=== PATIENT | female | born 1980 | race Caucasian/White ===

== ENCOUNTER 2017-04-04 11:39 | Emergency (ER) | payer OTHER ==
--- NOTE | 2017-04-04 11:48 | EDPHY ---
H & P Source: Patient Exam Limitations: No limitations - Personal History LMP (Females 10-55): 8-14 Days Ago Time Seen by Provider: 04/04/17 11:48 HPI/ROS: HPI: This is a 36-year-old female who presents with Chief Complaint: Panic attack Location: Anterior Chest Quality: Pain Duration: Starting 30 min prior to arrival Signs and Symptoms: + shortness of breath at rest, + shortness of breath on exertion, no cough, + chest pain, no palpitations, no lower extremity edema, no wheezing, no orthopnea, no paroxysmal nocturnal dyspnea, no fever, no injury/ trauma, no hemoptysis Timing: Acute, resolving Severity: Moderate Context: Patient has a history of depression anxiety but has been off her Celexa for "quite some time" presents via EMS from work where she works in [employer]. They were having a photo shoot today when all a sudden she started to become anxious, started to breathe rapidly and then feel anterior, nonradiating, chest pain accompanied by the feeling of inability to take a deep breath. She reports that she has noted that her anxiety has been increasing over the last several weeks. She denies any recent long distance travel/fever/ cough/body aches/lower extremity edema/palpitations. is at bedside. LMP 2 weeks ago. Nonsmoker. Does not take oral contraception. Denies any familial history of cardiac disease. Denies any nausea/vomiting/indigestion/ food intolerances. Modifying Factors: EMS gave patient 4 baby aspirins to chew and Zofran Comment: ROS: see HPI Constitutional: No fever, no chills, no weight loss Eyes: No blurred vision Respiratory: + shortness of breath, no cough Cardiovascular: + chest pain, no palpitations, no lower extremity edema Gastrointestinal: No nausea, no vomiting, no diarrhea Genitourinary: No dysuria Extremities: No myalgias Neurologic: No weakness, no numbness Skin: No rashes Hematologic: No bruising, no bleeding MEDICAL/SURGICAL/SOCIAL HISTORY: Medical history: Anxiety, depression. Surgical history: Denies Social history: Employed. . CONSTITUTIONAL: Extremely anxious, nontoxic appearing, adult white female awake and alert, no obvious distress HEENT: Atraumatic and normocephalic, PERRL, EOMI. Tympanic membranes clear. Oropharynx clear, no exudate and moist pink mucosa. Airway patent. No lymphadenopathy. No meningismus. Cardiovascular: Normal S1/S2, tachycardia, regular rhythm, without murmur rub or gallop. PULMONARY/CHEST: Symmetrical and nontender. Clear to auscultation bilaterally. Good air movement. No accessory muscle usage. Tachypnea. ABDOMEN: Soft, nondistended, nontender, no rebound, no guarding, no peritoneal signs, no masses or organomegaly. No CVAT. EXTREMITIES: 2/2 pulses, strength 5/5, no deformities, no clubbing, no cyanosis or edema. NEUROLOGICAL: no focal neuro deficits. GCS 15. SKIN: Warm and dry, no erythema. no rash. Good capillary refill. (Heydi Lyons) Constitutional: Initial Vital Signs Temperature (C) 36.6 C 04/04/17 12:14 Heart Rate 95 04/04/17 12:14 Respiratory Rate 24 H 04/04/17 12:14 Blood Pressure 155/85 H 04/04/17 12:14 O2 Sat (%) 100 04/04/17 12:14 O2 Delivery Mode Room Air Allergies/Adverse Reactions: No Known Allergies Allergy (Unverified 04/04/17 12:10) Home Medications: Medication Instructions Recorded LORazepam [Ativan] 0.5 mg PO Q8 PRN #10 tablet 04/04/17 Medical Decision Making - Diagnostics Imaging Results: Imaging Impressions Abdomen Ultrasound 04/04/17 13:07 Impression: Cholelithiasis with borderline-enlargement of the common bile duct, but no evidence of choledocholithiasis. Findings were discussed with Heydi Lyons PA-C at 14:11, on 04/04/2017. ED Course/Re-evaluation: Chest x-ray, EKG, labs, IV medications ordered Given IV Ativan 1 mg upon arrival No hypoxia with normal lung exam. ISIDORO risk is low. abdominal exam benign. Abdomen soft and nontender. Low yield for surgical abdomen. 1220: Notified by nursing that patient declines EKG and chest x-ray. Reassessed patient who reports that she has complete relief of all of her symptoms. She reports that she has had increasing anxiety over the last 6 months. She believes that this is a panic attack. She follows with [facility] and will make an appointment soon to be restarted on her Celexa. She agrees to laboratory studies. Labs reviewed: No signs of anemia/VTE/acute kidney injury/electrolyte imbalance. + LFTs show mild elevation; offered right upper quadrant ultrasound to evaluate for gallbladder disease; patient agrees to this in the emergency room She has already called her PCP who has called into pharmacy Lexapro 10 mg daily and she has a follow-up appointment in 2 weeks. Called by Radiology who advised that ultrasound shows cholelithiasis; no signs of cholecystitis; negative Yost sign; borderline-enlargement of the common bile duct, but no evidence of choledocholithiasis. Patient reports now that she thinks about that she has indigestion with fatty and fried foods. Her mom and her sister have had to have her gallbladder out in the past. Patient tolerating p.o. in the ER without difficulty. Prefers to follow up outpatient and schedule laparoscopic cholecystectomy. This patient was seen under the supervision of my secondary supervising physician. I evaluated care for this patient independently. Discussed this patient with Dr. Turner who did not see the patient. (Heydi Lyons) Differential Diagnosis: Chest pain including but not limited to myocardial ischemia, pulmonary embolus, chest wall pain, pleural inflammation, anxiety and pulmonary infectious causes. (Heydi Lyons) Other Provider: PHYSICIAN DOCUMENTATION: The patient was evaluated and managed by the [facility]ician [facility] Rep. My co- signature indicates that I have reviewed this chart and I agree with the findings and plan of care as documented. I am the secondary supervising physician. (Laith Turner) - Data Points Laboratory Results: Laboratory Results 04/04/17 11:58 04/04/17 11:58 04/04/17 04/04/17 04/04/17 11:58 11:58 11:58 WBC RBC Hgb Hct MCV MCH MCHC RDW Plt Count MPV Neut % (Auto) Lymph % (Auto) Montgomery % (Auto) Eos % (Auto) Baso % (Auto) Nucleat RBC Rel Count Absolute Neuts (auto) Absolute Lymphs (auto) Absolute Monos (auto) Absolute Eos (auto) Absolute Basos (auto) Absolute Nucleated RBC Immature Gran % Immature Gran # D-Dimer 0.47 ug/mLFEU ug/mLFEU (0.00-0.50) Sodium 141 mEq/L mEq/L (135-145) Potassium 3.6 mEq/L mEq/L (3.5-5.2) Chloride 104 mEq/L mEq/L (97-110) Carbon Dioxide 19 mEq/l L mEq/l (22-31) Anion Gap 18 mEq/L H mEq/L (8-16) BUN 11 mg/dL mg/dL (7-23) Creatinine 0.7 mg/dL mg/dL (0.6-1.0) Estimated GFR > 60 Glucose 110 mg/dL H mg/dL (70-100) Calcium 9.7 mg/dL mg/dL (8.5-10.4) Total Bilirubin 1.1 mg/dL mg/dL (0.1-1.4) AST 115 IU/L H IU/L (14-46) ALT 72 IU/L H IU/L (9-52) Alkaline Phosphatase 76 IU/L IU/L (38-126) Troponin I < 0.012 ng/mL ng/mL (0.000-0.034) Total Protein 7.3 g/dL g/dL (6.3-8.2) Albumin 4.6 g/dL g/dL (3.5-5.0) Lipase 266 IU/L IU/L (23-300) 04/04/17 11:58 WBC 7.34 10^3/uL 10^3/uL (3.80-9.50) RBC 4.56 10^6/uL 10^6/uL (4.18-5.33) Hgb 15.2 g/dL g/dL (12.6-16.3) Hct 43.9 % % (38.0-47.0) MCV 96.3 fL fL (81.5-99.8) MCH 33.3 pg pg (27.9-34.1) MCHC 34.6 g/dL g/dL (32.4-36.7) RDW 12.6 % % (11.5-15.2) Plt Count 286 10^3/uL 10^3/uL (150-400) MPV 9.9 fL fL (8.7-11.7) Neut % (Auto) 58.5 % % (39.3-74.2) Lymph % (Auto) 34.1 % % (15.0-45.0) Montgomery % (Auto) 6.1 % % (4.5-13.0) Eos % (Auto) 0.5 % L % (0.6-7.6) Baso % (Auto) 0.4 % % (0.3-1.7) Nucleat RBC Rel Count 0.0 % % (0.0-0.2) Absolute Neuts (auto) 4.29 10^3/uL 10^3/uL (1.70-6.50) Absolute Lymphs (auto) 2.50 10^3/uL 10^3/uL (1.00-3.00) Absolute Monos (auto) 0.45 10^3/uL 10^3/uL (0.30-0.80) Absolute Eos (auto) 0.04 10^3/uL 10^3/uL (0.03-0.40) Absolute Basos (auto) 0.03 10^3/uL 10^3/uL (0.02-0.10) Absolute Nucleated RBC 0.00 10^3/uL 10^3/uL (0-0.01) Immature Gran % 0.4 % % (0.0-1.1) Immature Gran # 0.03 10^3/uL 10^3/uL (0.00-0.10) D-Dimer Sodium Potassium Chloride Carbon Dioxide Anion Gap BUN Creatinine Estimated GFR Glucose Calcium Total Bilirubin AST ALT Alkaline Phosphatase Troponin I Total Protein Albumin Lipase Medications Given: Discontinued Medications Lorazepam (Ativan Injection) 1 mg IVP EDNOW ONE Stop: 04/04/17 11:58 Last Admin: 04/04/17 12:10 Dose: 1 mg Departure - Departure Disposition: Home, Routine, Self-Care Clinical Impression: Anxiety disorder Qualifiers: Anxiety disorder type: generalized anxiety disorder Qualified Code(s): F41.1 - Generalized anxiety disorder Cholelithiasis Qualifiers: Cholelithiasis location: gallbladder Cholecystitis presence: without cholecystitis Biliary obstruction: without biliary obstruction Qualified Code(s) : K80.20 - Calculus of gallbladder without cholecystitis without obstruction Condition: Good Instructions: Biliary Colic (ED), Gallstones (ED), Low Fat Diet (ED), Laparoscopic Cholecystectomy (DC), Anxiety (ED), Panic Attack (ED) Additional Instructions: Follow a low-fat diet. Eat small frequent meals. Follow-up with General surgery in 1-2 weeks to discuss if candidate for outpatient laparoscopic cholecystectomy. Start taking Lexapro and establish care with primary care. Referrals: PCP Not In,Dictionary [Medical Doctor] - As per Instructions Tahir Lang MD [Medical Doctor] - As per Instructions Prescriptions: LORazepam [Ativan] 0.5 mg PO Q8 PRN #10 tablet PRN Reason: Anxiety
[2017-04-04] MEDS ORDERED: LORazepam 2 MG/ML INJ IVP ONE (11:57)
[2017-04-04 12:12] LABS: PLATELET COUNT 286 10^3/uL (150-400)
[2017-04-04 13:19] VITALS: RESP 16
[2017-04-04 14:39] VITALS: BP 112/63; PULSE 71; TEMP 97.7; O2SAT 98
== END 2017-04-04 14:39 | disposition home or self-care (01) ==
LOC: EDUNIT#
DX: F41.1 Generalized anxiety disorder (principal); K80.20 Calculus of gallbladder without cholecystitis without obstruction
CPT/HCPCS: 96374; J2060

== ENCOUNTER 2017-04-04 21:54 | Observation (INO) | payer OTHER ==
[2017-04-04] MEDS ORDERED: NS 1,000 ML IV ONE (22:23)
[2017-04-04] MEDS ORDERED: PROMETHAZINE HCL 25 MG/ML INJ IVP ONE (22:23)
--- NOTE | 2017-04-04 22:29 | EDPHY ---
General - History Smoking Status: Never smoked Narrative: CHIEF COMPLAINT: Chest pain, abdominal pain HISTORY OF PRESENT ILLNESS: Patient presents with complaints of epigastric abdominal pain and lower chest pain. She reports feeling well when she left the emergency department around 2: 00 p.m.. She went to stay in a hotel to get increased rest tonight. Prior to doing so she ate a meal around 4:30 p.m.. Shortly after arriving to the hotel she reports return of epigastric pain. It was severe and radiated into the lower retrosternal region and into her back. Source palpation of the epigastrium. Associated with nausea but no vomiting. The pain was not worsened with exertion. No urinary complaints. No flank pain. She was here earlier today with reports of a possible panic attack with a diagnosis of cholelithiasis without cholecystitis. No other associated complaints or modifying factors. REVIEW OF SYSTEMS: Ten systems reviewed and are negative unless otherwise noted in the HPI PCP: Dr. Saxena SPECIALISTS: None PAST MEDICAL HISTORY: Depression/anxiety PAST SURGICAL HISTORY: No surgical history SOCIAL HISTORY: Nonsmoker. Occasional alcohol. No drug use. Works in marketing FAMILY HISTORY: Noncontributory EXAMINATION General Appearance: Alert, no distress Head: normocephalic, atraumatic Eyes: Pupils equal and round, no conjunctival pallor or injection ENT, Mouth: Mucous membranes moist Neck: Normal inspection, supple, non-tender Respiratory: Lungs are clear to auscultation. No wheezing, rhonchi or crackles Cardiovascular: Regular rate and rhythm. No murmur Gastrointestinal: Abdomen is soft and nondistended. Moderate tenderness in the epigastrium. No tympany. No rigidity. No guarding. Negative McBurney. Back: non-tender, no bony abnormalities Neurological: A&O, nonfocal, normal gait Skin: Warm and dry, no rash. No petechiae or purpura Extremities: Nontender, no pedal edema Psychiatric: Mood and affect normal DIFFERENTIAL DIAGNOSES: Including but not limited to symptomatic cholelithiasis, choledocholithiasis, cholecystitis, pancreatitis, gastritis, ACS MDM: 10:25 p.m. Epigastric and lower retrosternal chest pain. Abdominal exam suggest gallbladder or pancreatic etiology. Her pain is reproducible by palpation of the epigastrium. Is also worse with inspiration. Her vital signs were well within normal limits. She was seen earlier today with similar complaints with asymptomatic cholelithiasis without cholecystitis. Her pain did return after eating a large meal this evening. She is nontoxic and in no acute distress. I have ordered IV placement. I have ordered laboratory studies, IV fluid, pain medication and antiemetic. I have also ordered EKG and chest x-ray. I do not feel she warrants an emergent CT scan at this time. I reviewed the findings from her laboratory studies and ultrasound of the abdomen earlier today. 11:20 p.m. Patient re-evaluated. Chemistry does reveal elevated total bilirubin and further increases of the transaminases. She will need surgical consultation. She is feeling significantly better however and resting comfortably at this time. 11:40 p.m. I discussed the case with the on-call surgeon Dr. Lang. We reviewed the patient's history of present illness, exam and laboratory studies. He recommends admission to the medicine service with GI consultation in the morning for ERCP and surgical intervention as indicated. I discussed this with the patient she agrees to this plan. Hospitalist has been paged. 11:55 p.m. Case discussed with hospitalist Dr. Hernandez. She will admit the patient to her service. Patient is admitted in stable condition. She is resting comfortably at this time. SUPERVISION: Patient was independently examined, but I discussed the case with my secondary supervising physician Dr. Chaudhry ([facility]) PHYSICIAN DOCUMENTATION: The patient was evaluated and managed by the Physician Veneer Grader. My co- signature indicates that I have reviewed this chart and I agree with the findings and plan of care as documented. I am the secondary supervising physician. (Sonia Chaudhry) - Objective Vital Signs: Initial Vital Signs Temperature (C) 36.9 C 04/04/17 21:55 Heart Rate 82 04/04/17 21:55 Respiratory Rate 18 04/04/17 21:55 Blood Pressure 113/73 04/04/17 21:55 O2 Sat (%) 98 04/04/17 21:55 O2 Delivery Mode Nasal Cannula O2 (L/minute) 1 Allergies/Adverse Reactions: No Known Allergies Allergy (Unverified 04/04/17 12:10) Home Medications: Medication Instructions Recorded LORazepam [Ativan] 0.5 mg PO Q8 PRN #10 tablet 04/04/17 Laboratory Results: Laboratory Results 04/04/17 22:45 04/04/17 22:45 04/04/17 04/04/17 22:45 22:45 WBC 9.67 10^3/uL H 10^3/uL (3.80-9.50) RBC 4.85 10^6/uL 10^6/uL (4.18-5.33) Hgb 15.9 g/dL g/dL (12.6-16.3) Hct 46.9 % % (38.0-47.0) MCV 96.7 fL fL (81.5-99.8) MCH 32.8 pg pg (27.9-34.1) MCHC 33.9 g/dL g/dL (32.4-36.7) RDW 12.6 % % (11.5-15.2) Plt Count 285 10^3/uL 10^3/uL (150-400) MPV 10.2 fL fL (8.7-11.7) Neut % (Auto) 72.0 % % (39.3-74.2) Lymph % (Auto) 19.9 % % (15.0-45.0) Allen % (Auto) 7.3 % % (4.5-13.0) Eos % (Auto) 0.3 % L % (0.6-7.6) Baso % (Auto) 0.2 % L % (0.3-1.7) Nucleat RBC Rel Count 0.0 % % (0.0-0.2) Absolute Neuts (auto) 6.96 10^3/uL H 10^3/uL (1.70-6.50) Absolute Lymphs (auto) 1.92 10^3/uL 10^3/uL (1.00-3.00) Absolute Monos (auto) 0.71 10^3/uL 10^3/uL (0.30-0.80) Absolute Eos (auto) 0.03 10^3/uL 10^3/uL (0.03-0.40) Absolute Basos (auto) 0.02 10^3/uL 10^3/uL (0.02-0.10) Absolute Nucleated RBC 0.00 10^3/uL 10^3/uL (0-0.01) Immature Gran % 0.3 % % (0.0-1.1) Immature Gran # 0.03 10^3/uL 10^3/uL (0.00-0.10) Sodium 137 mEq/L mEq/L (135-145) Potassium 4.2 mEq/L mEq/L (3.5-5.2) Chloride 101 mEq/L mEq/L (97-110) Carbon Dioxide 22 mEq/l mEq/l (22-31) Anion Gap 14 mEq/L mEq/L (8-16) BUN 10 mg/dL mg/dL (7-23) Creatinine 0.7 mg/dL mg/dL (0.6-1.0) Estimated GFR > 60 Glucose 95 mg/dL mg/dL (70-100) Calcium 9.7 mg/dL mg/dL (8.5-10.4) Total Bilirubin 2.2 mg/dL H D mg/dL (0.1-1.4) Conjugated Bilirubin 1.5 mg/dL H mg/dL (0.0-0.5) Unconjugated Bilirubin 0.7 mg/dL mg/dL (0.0-1.1) AST 613 IU/L H IU/L (14-46) ALT 525 IU/L H IU/L (9-52) Alkaline Phosphatase 116 IU/L IU/L (38-126) Troponin I < 0.012 ng/mL ng/mL (0.000-0.034) Total Protein 8.0 g/dL g/dL (6.3-8.2) Albumin 4.8 g/dL g/dL (3.5-5.0) Lipase 376 IU/L H IU/L (23-300) Medications Given: Discontinued Medications Sodium Chloride (Ns) 1,000 mls @ 0 mls/hr IV EDNOW ONE; Wide Open PRN Reason: Protocol Stop: 04/04/17 22:24 Last Admin: 04/04/17 22:42 Dose: 1,000 mls Sodium Chloride (Ns) 1,000 mls @ 0 mls/hr IV ONCE ONE PRN Reason: Wide Open Stop: 04/05/17 00:49 Last Admin: 04/05/17 00:51 Dose: 1,000 mls Morphine Sulfate (Morphine) 4 mg IVP EDNOW ONE Stop: 04/04/17 22:24 Last Admin: 04/04/17 22:41 Dose: 4 mg Promethazine HCl (Phenergan) 12.5 mg IVP EDNOW ONE Stop: 04/04/17 22:24 Last Admin: 04/04/17 22:41 Dose: 12.5 mg Departure - Departure Disposition: [facility] Clinical Impression: Symptomatic cholelithiasis, Hyperbilirubinemia, Transaminitis Condition: Good
[2017-04-04 23:04] LABS: PLATELET COUNT 285 10^3/uL (150-400)
--- NOTE | 2017-04-04 23:06 | CPEKG ---
Heart Rate: 64 RR Interval: 938 P-R Interval: 144 QRSD Interval: 82 QT Interval: 400 QTC Interval: 413 P Dawn: 48 QRS Dawn: 49 T Wave Dawn: 22 EKG Severity - NORMAL ECG - EKG Impression: SINUS RHYTHM Electronically Signed By: Sonia Chaudhry 06-Apr-2017 07:37:12
[2017-04-04] MEDS ORDERED: LORazepam 2 MG/ML INJ IVP PRN (23:55)
[2017-04-04] MEDS ORDERED: ACETAMINOPHEN 325 MG TAB PO PRN (23:55)
[2017-04-04] MEDS ORDERED: ONDANSETRON 4 MG/2 ML VIAL IVP PRN (23:55)
[2017-04-04] MEDS ORDERED: PROMETHAZINE HCL 25 MG/ML INJ IVP PRN (23:55)
[2017-04-05] MEDS ORDERED: NS 1,000 ML IV ONE (00:48)
--- NOTE | 2017-04-05 04:01 | PDGENHP ---
History and Physical - Chief Complaint Epigastric pain - History of Present Illness Source-patient provides history appears reliable. EMR reviewed and case discussed with ED provider. HPI - this is a pleasant 36-year-old female with past medical history significant for anxiety and depression who presents to the emergency department for the 2nd time in 1 day with complaints of nausea vomiting and epigastric pain. Patient presented earlier in the day time with complaints of epigastric pain that radiated to her back. It was associated with food intake. Patient denies any diarrhea no melena or hematochezia. Patient reports some subjective fevers chills earlier in the day during her severe pain exacerbations. Patient' s pain did improve following administration of IV narcotics. Patient underwent abdominal U.S. That was significant for cholelithiasis with borderline enlargement of CBD without choledocholithiasis. She was initially discharged with normal labs. Patient subsequently ate a light snack and shortly following had recurrence of her epigastric/right upper quadrant abdominal pain with similar radiation to her back. Patient again presented to the emergency department for re-evaluation. Her repeat laboratory studies however were significant for transaminitis and a mild hyperbilirubinemia. Patient denies any hematemesis. No jaundice or scleral icterus reported. Patient received pain medications in the emergency department and reports that her pain has since resolved. Family history is significant for mother and 2 sisters with history of gallbladder dysfunction. History Information - Allergies/Home Medication List Allergies/Adverse Reactions: No Known Allergies Allergy (Unverified 04/04/17 12:10) I have personally reviewed and updated: family history, medical history, social history, surgical history - Past Medical History Additional medical history: Anxiety, depression - Surgical History Reports: no pertinent surgical hx - Family History Additional family history: Gallbladder disease in mother and 2 sisters. - Social History Smoking Status: Never smoked Alcohol Use: Occasionally Drug Use: None Additional social history: Patient is employed in marketing. Core-full Review of Systems Review of Systems: ROS: 10pt was reviewed & negative except for what was stated in HPI & below Constitutional: Reports: chills (During pain exacerbation), fever (During pain exacerbation) EENMT: Denies: nose congestion, sore throat Cardiac: Reports: no symptoms Respiratory: Reports: no symptoms Gastrointestinal: Reports: vomitting, abdominal pain (See HPI). Denies: diarrhea Genitourinary: Denies: dysuria, hematuria Muscolosketal: Denies: joint pain, muscle pain Skin: Reports: no symptoms Neurological: Reports: anxiety (Controlled), depressed (Controlled). Denies: numbness, tingling, tremors, weakness Hematologic/Lymphatic: Reports: no symptoms Physical Exam Physical Exam: Selected Entries 04/04/17 12:14 Blood Pressure Automatic Method Heart Rate 95 Respiratory 24 H Rate O2 Sat (%) 100 Temperature (C) 36.6 C Blood Pressure 155/85 H Mean Arterial 108 H Pressure (MAP) O2 Delivery Room Air Mode Temperature Oral Source Temp Pulse Resp BP Pulse Ox 36.9 C 68 16 102/41 L 95 04/05/17 01:02 04/05/17 01:02 04/05/17 01:02 04/05/17 01:02 04/05/17 01:02 O2 (L/minute) 1 Constitutional: no apparent distress, not in pain, obese, other (NAD. Patient is resting quietly in bed. Somnolent but wakes easily to name. Falls asleep occasionally during interview.) Eyes: PERRL, anicteric sclera, EOMI, No icteric sclera, No scleral injection Ears, Nose, Mouth, Throat: hearing normal, dry mucous membranes (Slightly dry), No poor dentition Cardiovascular: regular rate and rhythym, no murmur, rub, or gallop, No systolic murmur, No edema Peripheral Pulses: 2+: dorsalis-pedis (R), dorsalis-pedis (L) Respiratory: no respiratory distress, no rales or rhonchi, clear to auscultation , No expiratory wheeze, No rhonchi Gastrointestinal: normoactive bowel sounds, soft, non-tender abdomen, no palpable masses, No tenderness, No yost's sign, No hepatosplenomegally, No guarding, No distension Genitourinary: no bladder tenderness, No diaz in urethra Skin: warm, normal color, no rashes or abrasions Musculoskeletal: full muscle strength (While lying in bed.), No joint tenderness , No generalized weakness Neurologic: AAOx3, No weakness, No numbness, No CN II-XII Intact, No facial droop Psychiatric: interacting appropriately, not anxious, not encephalopathic, thought process linear (Asks appropriate questions.) Lab Data & Imaging Review 04/04/17 22:45 04/04/17 22:45 WBC 9.67 10^3/uL (3.80-9.50) H 04/04/17 22:45 RBC 4.85 10^6/uL (4.18-5.33) 04/04/17 22:45 Hgb 15.9 g/dL (12.6-16.3) 04/04/17 22:45 Hct 46.9 % (38.0-47.0) 04/04/17 22:45 MCV 96.7 fL (81.5-99.8) 04/04/17 22:45 MCH 32.8 pg (27.9-34.1) 04/04/17 22:45 MCHC 33.9 g/dL (32.4-36.7) 04/04/17 22:45 RDW 12.6 % (11.5-15.2) 04/04/17 22:45 Plt Count 285 10^3/uL (150-400) 04/04/17 22:45 MPV 10.2 fL (8.7-11.7) 04/04/17 22:45 Neut % (Auto) 72.0 % (39.3-74.2) 04/04/17 22:45 Lymph % (Auto) 19.9 % (15.0-45.0) 04/04/17 22:45 [place] % (Auto) 7.3 % (4.5-13.0) 04/04/17 22:45 Eos % (Auto) 0.3 % (0.6-7.6) L 04/04/17 22:45 Baso % (Auto) 0.2 % (0.3-1.7) L 04/04/17 22:45 Nucleat RBC Rel Count 0.0 % (0.0-0.2) 04/04/17 22:45 Absolute Neuts (auto) 6.96 10^3/uL (1.70-6.50) H 04/04/17 22:45 Absolute Lymphs (auto) 1.92 10^3/uL (1.00-3.00) 04/04/17 22:45 Absolute Monos (auto) 0.71 10^3/uL (0.30-0.80) 04/04/17 22:45 Absolute Eos (auto) 0.03 10^3/uL (0.03-0.40) 04/04/17 22:45 Absolute Basos (auto) 0.02 10^3/uL (0.02-0.10) 04/04/17 22:45 Absolute Nucleated RBC 0.00 10^3/uL (0-0.01) 04/04/17 22:45 Immature Gran % 0.3 % (0.0-1.1) 04/04/17 22:45 Immature Gran # 0.03 10^3/uL (0.00-0.10) 04/04/17 22:45 Sodium 137 mEq/L (135-145) 04/04/17 22:45 Potassium 4.2 mEq/L (3.5-5.2) 04/04/17 22:45 Chloride 101 mEq/L (97-110) 04/04/17 22:45 Carbon Dioxide 22 mEq/l (22-31) 04/04/17 22:45 Anion Gap 14 mEq/L (8-16) 04/04/17 22:45 BUN 10 mg/dL (7-23) 04/04/17 22:45 Creatinine 0.7 mg/dL (0.6-1.0) 04/04/17 22:45 Estimated GFR > 60 04/04/17 22:45 Glucose 95 mg/dL (70-100) 04/04/17 22:45 Calcium 9.7 mg/dL (8.5-10.4) 04/04/17 22:45 Total Bilirubin 2.2 mg/dL (0.1-1.4) H D 04/04/17 22:45 Conjugated Bilirubin 1.5 mg/dL (0.0-0.5) H 04/04/17 22:45 Unconjugated Bilirubin 0.7 mg/dL (0.0-1.1) 04/04/17 22:45 AST 613 IU/L (14-46) H 04/04/17 22:45 ALT 525 IU/L (9-52) H 04/04/17 22:45 Alkaline Phosphatase 116 IU/L (38-126) 04/04/17 22:45 Troponin I < 0.012 ng/mL (0.000-0.034) 04/04/17 22:45 Total Protein 8.0 g/dL (6.3-8.2) 04/04/17 22:45 Albumin 4.8 g/dL (3.5-5.0) 04/04/17 22:45 Lipase 376 IU/L (23-300) H 04/04/17 22:45 Imaging Review: Sonography Limited to the Right Upper Quadrant of the Abdomen Clinical History: 36-year-old female in the ED complaining of right upper quadrant pain and noted to have elevated liver function tests. Rule out cholelithiasis. Technique: A curvilinear 5 MHz transducer was used to sonographically evaluate the right upper quadrant of the abdomen. Color Doppler was used. Cine clips were acquired through the gallbladder. Comparison Study: None. Findings: There is limited assessment of the pancreas secondary to overlying bowel gas. The abdominal aorta is normal in size, and tapers normally. The visualized IVC is normal in caliber. The hepatic vein trifurcation is normal. The main portal vein is patent. The liver is normal in size , measuring 14.7 cm along the right midaxillary line. There is no focal hepatic mass. There is no intrahepatic bile duct dilatation. The common bile duct is borderline-enlarged for 36-year-old female, and measures 5.6 mm. The gallbladder is moderately distended, and there are multiple mobile echogenic shadowing gallstones, as well as a stone identified in the gallbladder neck. There was no sonographic Yost sign. The gallbladder wall thickness is normal, measuring 1.9 mm. The right kidney is normal in size and contour, with a normal renal cortical thickness, and no focal renal mass or hydronephrosis, and measures 8.9 x 3.9 x 4.5 cm. The renal cortical thickness is 1.2 cm. There is no ascites or right pleural effusion. Impression: Cholelithiasis with borderline-enlargement of the common bile duct, but no evidence of choledocholithiasis. Findings were discussed with Heydi Lyons PA-C at 14:11, on 04/04/2017. EKG Interpretation: Positive for: normal sinsus rhythm (NSR 60s. QTC 416. No acute ST changes. Normal EKG) Assessment & Plan Assessment: Assessment: Pleasant 36-year-old female presents with intermittent episodes of postprandial epigastric/RUQ pain Epigastric/right upper quadrant abdominal pain Symptomatic cholelithiasis (Acute) Transaminitis (Acute) Hyperbilirubinemia (Acute) Nausea vomiting Anxiety/depression Plan: Admit to medical floor for observation. Further discussion with GI in the morning regarding ERCP. Ultrasound performed earlier was noted to have cholelithiasis with slightly dilated CBD but no evidence of choledocholithiasis. Surgery did not recommend repeating imaging at this time rather consultation in the morning. Discussed with the patient possibility for recommendation of a MRCP but will await further recommendations from GI. Consultation call in the morning. Either way she is aware she will be NPO and is agreeable. Pending repeat labs in GI recommendations consult for General surgery after ERCP for evaluation of cholecystectomy P.r.n. Morphine for pain control while NPO. Will trend LFTs and bilirubin in the morning. Antiemetics available p.r.n.. Patient currently without any active nausea or vomiting. FEN - IVF overnight. electrolyte replacement prn. NPO PPX - SCds only pending GI evaluation and possible procedure. COR - FULL Dispo - Admit to observation on the medical floor.
[2017-04-05 05:20] LABS: PLATELET COUNT 229 10^3/uL (150-400)
[2017-04-05 05:42] LABS: INR 1.15 (0.83-1.16); PROTIME(PATIENT) 14.9 SEC (12.0-15.0)
[2017-04-05] MEDS ORDERED: TEARS/DEXTRAN 70/HYPROMELLOSE 15 ML OPHT.BTL EACHEYE PRN (09:14)
--- NOTE | 2017-04-05 09:54 | ASMTCASEMG ---
Living Arrangements What is your living Answers: With Spouse arrangement? Who do you live with? Type Of Residence What kind of residence do Answers: House you live in? Discharge Plan Comments Coordination Status Comments Notes: Pt is a 36 y/o female admitted for epigastric pain. Pt will most likely d/c independent when medically stable. No therapies ordered at this time. CM available for changes. Plan: Independent Date Signed: 04/05/2017 09:54 AM Electronically Signed By:JERMAN Nicholas
--- NOTE | 2017-04-05 11:27 | GCON ---
[f rep st] CONSULTATION CHIEF COMPLAINT: Epigastric pain, cholelithiasis. HISTORY OF PRESENT ILLNESS: I have been asked to see this 36-year-old woman in consultation by Dr. Hussain red for consultation regarding a consultation by Dr. Mack for evaluation of epigastric pain, ab normal liver function tests and cholelithiasis. HISTORY OF PRESENT ILLNESS: This 36-year-old woman has a history of anxiety and depression. She has no other significant medical history. She has been having symptoms for nine months. She has epigas tric pain, nausea. She also complains of chest tightness. Symptoms are worse after meals. Symptoms also worse at night. Symptoms became worse yesterday at work. [facility]. She had an ultrasound that showed cholelithiasis and borderline dilated common bile duct. No obvious evidence of choledocholithiasis. She was noted also to have abnormal liver function villa ts, with AST of 613, ALT of 525. Total bilirubin was initially 2.2, and dropped to 1.3. Her lipase was mildly elevated at 376. She is afebrile. No significant elevation of her white count. Her whit e count today was 6.84. She is having no abdominal pain. Asked to see patient for further evaluatio n. PAST MEDICAL HISTORY: Negative. PAST SURGICAL HISTORY: Negative. ALLERGIES: She has no known drug allergies. MEDICATIONS: None prior to admission. FAMILY HISTORY: Remarkable for mother with gallbladder disease. Otherwise negative as it pertains t o chief complaint. SOCIAL HISTORY: She is a nonsmoker. Drinks occasionally. REVIEW OF SYSTEMS: Negative 10 systems other than mentioned in the HPI. PHYSICAL EXAM: VITAL SIGNS: 92/60, respiratory rate of 12, heart rate of 59, 94% sat. 36.9. GENERA L: Very pleasant woman in no acute distress. HEENT: Normocephalic, atraumatic. EOMI. NECK: Supp le. No cervical adenopathy. Mucous membranes moist. LUNGS: Clear. CARDIAC: Normal S1, S2, witho ut murmur. ABDOMEN: Benign, soft, nontender. Normal bowel sounds. EXTREMITIES: Without clubbing, cyanosis, edema. NEURO: Nonfocal. SKIN: Warm, dry, intact. PSYCHIATRIC: Alert and oriented x3, with normal affect. LABORATORY DATA: Hemoglobin 12.7, hematocrit 37.2, white count of 6.84, platelets of 229. PT of 14. 9, with INR of 1.15. PTT 26.9. Serum chemistries: Serum sodium 140, potassium of 4.0, chloride of 110, BUN of 7, creatinine 0.7, blood sugar of 95, total bilirubin of 1.3 with an AST of 446, ALT of 5 26. IMPRESSION: A 36-year-old woman with cholelithiasis, with possible choledocholithiasis. She had nor mal ultrasound without bile duct dilation. However, she does have some abnormal liver function tests with elevated ALT, but now with normal total bilirubin this morning. I did discuss with the patient . Will recommend MRCP first, to document whether evidence of choledocholithiasis prior to considerin g ERCP. RECOMMENDATIONS: 1. MRCP today. 2. If MRCP is normal, without choledocholithiasis, proceed with cholecystectomy. 3. If MRCP is positive, with evidence of choledocholithiasis, will proceed with a preop ERCP and sph incterotomy stone extraction. Will follow with you. /[id number]/MODL
[2017-04-05] MEDS ORDERED: ceFAZolin 3 GM in D5W 100 ML IV ONE (15:17)
[2017-04-05] MEDS ORDERED: IOPAMIDOL (ISOVUE-M 300) 15 ML VIAL ONE (15:47)
--- NOTE | 2017-04-05 15:49 | PDCONSULT ---
Mushroom Press Operator Note: Surgical consult was requested by Dr. Mack. Patient was admitted last night for abdominal pain and gallstones with elevated LFTs and bilirubin. She felt better after admission and an MRCP earlier today showed a normal appearing 6mm CBD. She has had several attacks over the past year, but did not know she had gallstones. She denies fever, jaundice, weight loss. PMH: no surgery no medications no allergies SH: accompanied by her FH: mother and sister have "gallbladder issues" PE:T 36.8 P 60 BP 105/66 O2sat 93% RA pleasant young woman in NAD lungs CTA CVS RRR Abd: soft/+BS, non-tender, no HSM/mass MRCP reviewed labs reviewed Imp: cholelithiasis with acute elevation of LFTs/bili/lipase c/w transient choledocholithiasis Rec: Lap Cholecystectomy with IOC we discussed the procedure, risks and expected recovery informed consent was obtained Feli Mackey MD, FACS
[2017-04-05] MEDS ORDERED: BUPIVACAINE 0.25% 30 ML SDV ONE (15:58)
--- NOTE | 2017-04-05 15:58 | HOSPPROG ---
Hospitalist Progress Note Assessment/Plan: # acute cholelithiasis- patient presenting with pain US( personally reviewed) confirmed stone with mild common bile duct dilatation Reason oxygen saturations 93% on room air - consult to GI who is recommending MRCP - NPO - IV fluids - IV pain meds - Dr. Mackey from surgery also consulting for anticipated cholecystectomy # suspected choledocholithiasis- transaminases in the 500-600s at presentation- trending down this a.m. - MRCP ordered - follow liver function tests # acute leukocytosis suspect secondary to above normalized this a.m. # NPO with IV fluids # prophylaxis-no Lovenox in case to the OR # I have discussed the case with Dr. Neville and Dr. Mackey will proceed to the operating room if MRCP negative Subjective: Pain treated with IV meds Objective: Vital Signs Temp Pulse Resp BP Pulse Ox 36.8 C 61 12 105/66 93 04/05/17 11:54 04/05/17 11:54 04/05/17 11:54 04/05/17 11:54 04/05/17 11:54 Laboratory Results 04/05/17 04:46 04/05/17 04:46 04/04/17 04/05/17 04/06/17 05:59 05:59 05:59 Intake Total 1000 Balance 1000 PT 14.9 SEC (12.0-15.0) 04/05/17 04:46 INR 1.15 (0.83-1.16) 04/05/17 04:46 - Physical Exam Constitutional: no apparent distress Eyes: anicteric sclera Ears, Nose, Mouth, Throat: moist mucous membranes Cardiovascular: regular rate and rhythym Respiratory: no respiratory distress Gastrointestinal: normoactive bowel sounds, tenderness Genitourinary: no bladder fullness Skin: warm Musculoskeletal: No asymmetric calves Neurologic: AAOx3 Psychiatric: interacting appropriately Lymph, Heme, Immunologic: no cervical LAD ICD10 Worksheet Patient Problems: Problems Problem Status Onset Hyperbilirubinemia Acute Symptomatic cholelithiasis Acute Transaminitis Acute
[2017-04-05] MEDS ORDERED: ceFAZolin 2 GM/SWFI 2 GM/20 ML SYR IVP ONE (16:00)
[2017-04-05] MEDS ORDERED: LR 1,000 ML IV SCH (16:30)
[2017-04-05] MEDS ORDERED: MIDAZOLAM 2 MG/2 ML VIAL IVP ONE ×2 (16:30→19:30)
--- NOTE | 2017-04-05 16:30 | PDANEPAE ---
ANE History of Present Illness gabriella adams ZUNILDA Past Medical History - Cardiovascular History Hx Hypertension: No Hx Arrhythmias: No Hx Chest Pain: No Hx Coronary Artery / Peripheral Vascular Disease: No Hx CHF / Valvular Disease: No Hx Palpitations: No - Pulmonary History Hx COPD: No Hx Asthma/Reactive Airway Disease: No Hx Recent Upper Respiratory Infection: No Hx Oxygen in Use at Home: No Hx Sleep Apnea: No Sleep Apnea Screening Result - Last Documented: Negative - Neurologic History Hx Cerebrovascular Accident: No Hx Seizures: No Hx Dementia: No - Endocrine History Hx Diabetes: No Hypothyroid: No Hyperthyroid: No Obesity: no - Renal History Hx Renal Disorders: No - Liver History Hx Hepatic Disorders: No - Neurological & Psychiatric Hx Hx Neurological and Psychiatric Disorders: No - Cancer History Hx Cancer: No ANE Review of Systems Review of Systems: - Exercise capacity Exercise capacity: >=4 METS ANE Patient History - Allergies Allergies/Adverse Reactions: No Known Allergies Allergy (Unverified 04/04/17 12:10) - Home Medications Home Medications: NK [No Known Home Meds] 04/05/17 [Last Taken Unknown] - NPO status NPO Status: no food or drink >8 hours NPO Since - Liquids (Date): 04/04/17 NPO Since - Liquids (Time): 18:00 NPO Since - Solids (Date): 04/04/17 NPO Since - Solids (Time): 18:00 - Anes Hx Anes Hx: no prior problems - Smoking Hx Smoking Status: Never smoked - Alcohol Use Alcohol Use: Occasionally ANE Labs/Vital Signs - Labs Result Diagrams: 04/05/17 04:46 04/05/17 04:46 - Vital Signs Blood Pressure: 105/66 Heart Rate: 61 Respiratory Rate: 12 O2 Sat (%): 93 Height: 162.56 cm Weight: 86.2 kg ANE Physical Exam - Airway Mallampati Score: Class 2 Mouth exam: normal dental/mouth exam - Pulmonary Pulmonary: no respiratory distress - Cardiovascular Cardiovascular: regular rate and rhythym - ASA Status ASA Status: I ANE Anesthesia Plan Anesthesia Plan: general endotracheal anesthesia, GA w LMA
[2017-04-05] MEDS ORDERED: LIDOCAINE 2% 5 ML SDV ONE (16:34)
[2017-04-05] MEDS ORDERED: PROPOFOL 200 MG/20 ML VIAL ONE (16:34)
[2017-04-05] MEDS ORDERED: fentaNYL 100 MCG/2 ML INJ ONE ×3 (16:34→18:30)
[2017-04-05] MEDS ORDERED: DEXAMETHASONE 4 MG/ML VIAL ONE (16:35)
[2017-04-05] MEDS ORDERED: ONDANSETRON 4 MG/2 ML VIAL ONE (16:35)
[2017-04-05] MEDS ORDERED: ROCURONIUM 50 MG/5 ML VIAL ONE (16:35)
[2017-04-05] MEDS ORDERED: KETOROLAC 30 MG/1 ML SDV ONE (16:35)
[2017-04-05] MEDS ORDERED: ONDANSETRON 4 MG/2 ML VIAL IVP PRN (17:41)
[2017-04-05] MEDS ORDERED: NALOXONE HCL 0.4 MG/ML INJ IVP PRN (17:41)
[2017-04-05] MEDS ORDERED: ALBUTEROL 3 ML DEYVIAL IH PRN (17:41)
[2017-04-05] MEDS ORDERED: MEPERIDINE 25 MG/ML SYR IVP PRN (17:41)
[2017-04-05] MEDS ORDERED: SUGAMMADEX SODIUM 200 MG/2 ML VIAL IVP ONE (17:45)
[2017-04-05] MEDS ORDERED: MIDAZOLAM 2 MG/2 ML VIAL IVP PRN (18:29)
[2017-04-05] MEDS: fentaNYL 100 MCG/2 ML INJ IVP PRN ×3 (18:30→19:03)
--- NOTE | 2017-04-05 18:33 | POSTOPPROG ---
Post Op Note Date of Operation: 04/05/17 Surgeon: Romeo Mackey (, FACS) Anesthesiologist: Cheikh Lea Anesthesia: GET(General Endotracheal), LMA Pre-op Diagnosis: cholelithiasis/chronic cholecytitis Procedure: lap angie/attempted cholangio Findings: chronic cholecystitis Inf/Abcess present in the surg proc area at time of surgery?: No EBL: Minimal (10 ml)
[2017-04-05] MEDS ORDERED: HYDROmorphONE/DILAUDID 1 MG/ML INJ IVP PRN ×2 (18:34→19:23)
[2017-04-05] MEDS ORDERED: MIDAZOLAM 2 MG/2 ML VIAL ONE (18:36)
[2017-04-05] MEDS ORDERED: HYDROmorphONE/DILAUDID 1 MG/ML INJ ONE (18:47)
[2017-04-05] MEDS ORDERED: LORazepam 0.5 MG TAB PO PRN (20:46)
--- NOTE | 2017-04-05 22:41 | GOP ---
[f rep st] OPERATIVE REPORT DATE OF OPERATION: 04/05/2017 SURGEON: Romeo Mackey MD, FACS ANESTHESIA: General endotracheal. ANESTHESIOLOGIST: Cheikh Lea MD. PREOPERATIVE DIAGNOSIS: Cholelithiasis and chronic cholecystitis. POSTOPERATIVE DIAGNOSIS: Cholelithiasis and chronic cholecystitis. PROCEDURE PERFORMED: Laparoscopic cholecystectomy with attempted intraoperative cholangiogram. FINDINGS: Chronically inflamed appearing gallbladder with multiple stones. Inability to cannulate the cystic duct with intraoperative cholangiogram aborted. Preoperative MRCP was negative. ESTIMATED BLOOD LOSS: 10 cc. DESCRIPTION OF PROCEDURE: After informed consent was obtained, the patient was brought to the operating room and placed under general anesthesia. The abdomen was prepped and draped in usual fashion. Before proceeding, a time-out and identification of the patient was performed. 0.25% Marcaine was used to infiltrate all incision sites. A longitudinal incision was made through the base of the umbilicus and carried through the skin and subcutaneous tissues. Ventral traction was applied to the abdominal wall with a penetrating towel clamp and a Veress needle was introduced into the peritoneal cavity. Position was confirmed by saline infusion. A pneumoperitoneum was established with CO2 gas to a pressure of 15 mmHg. The Veress needle was withdrawn and replaced with a 12 mm bladeless trocar. A 30- degree scope was introduced and the peritoneal cavity was visualized. Additional 5 mm ports were placed in the subxiphoid position to the right of the falciform ligament and in the right upper quadrant midclavicular line and right upper quadrant anterior axillary line. This allowed introduction of atraumatic grasping forceps. The gallbladder was grasped by the fundus and retracted cephalad elevating the liver edge. The infundibulum of the gallbladder was grasped and manipulated anteriorly and posteriorly so that the peritoneum could be dissected away from the cystic duct circumferentially. The cystic artery presented cephalad to the duct and this was dispatched with a Harmonic Scalpel. After the cystic duct had been isolated it was hemoclipped near the gallbladder and incised just distal to this. A small amount of bile was released from the cystic duct but despite multiple attempts, the cystic duct could not be cannulated either due to spiral valves of Heister or fibrosis. I abandoned the operative cholangiogram to avoid injury to the cystic and/or common bile duct. The cystic duct was triply hemoclipped and divided. The gallbladder was then dissected away from the liver edge using the Harmonic Scalpel with minimal bleeding. The gallbladder was retrieved through the umbilical port site. The operative field was inspected for hemostasis, which appeared secure. Irrigation and aspiration were performed. The umbilical fascial defect was repaired with a transfascial closure needle and 0 Vicryl suture. The pneumoperitoneum was evacuated and the remaining ports were removed. Subcutaneous tissues were closed with 3-0 Monocryl suture. Skin was closed with 4-0 Monocryl suture in a subcuticular fashion. Topical Dermabond was applied. Patient was returned extubated to the recovery room in satisfactory condition. COUNTS: Needle, sponge, and instrument count were correct. COMPLICATIONS: None. /[id number]/MODL MTDD
[2017-04-06] MEDS: KETOROLAC 15 MG/1 ML SDV IVP SCH ×2 (00:44→05:30)
[2017-04-06] MEDS ORDERED: IBUPROFEN 600 MG TAB PO PRN (07:06)
[2017-04-06] MEDS ORDERED: traMADol 50 MG TAB PO PRN (07:06)
[2017-04-06 07:28] VITALS: BP 114/69; PULSE 80; RESP 20; TEMP 98.2; O2SAT 93
--- NOTE | 2017-04-06 07:31 | PDCONSULT ---
Live In Caregiver Note: Vicky is resting comfortably this morning. She required Ativan post operatively for severe anxiety when emerging from anesthesia. She denies significant pain and has only required Toradol. She is tolerating liquids, but has not yet had breakfast. Her surgical site appears uncomplicated. Total bili is 1.3 LFTs are returning to normal Imp: 1. s/p lap cholecystectomy 2. anxiety Rec: advance diet/oral meds/DC later this morning FU my office one week recommended follow up with her therapist to discuss anxiety/consider CBT Flei Mackey MD, FACS
[2017-04-06] MEDS ORDERED: ENOXAPARIN 40 MG/0.4 ML SYR SC SCH (09:00)
--- NOTE | 2017-04-06 18:45 | GDS ---
[f rep st] DISCHARGE SUMMARY DISCHARGE DIAGNOSES: Include acute cholelithiasis. HISTORY OF PRESENT ILLNESS: A 36-year-old female presenting with acute abdominal pain. CONSULTATIVE SERVICES: Include: 1. Ggastroenterology. 2. General Surgery. PROCEDURES: On 04/05/2017, patient underwent laparoscopic cholecystectomy. HOSPITAL COURSE: By issue: Acute cholelithiasis. Patient was admitted, seen by GI. MRCP was perfo rmed and negative. General Surgery took patient to the operating room for laparoscopic cholecystecto my which was uncomplicated. The patient is being discharged today, after procedure, tolerating ira l oral intake without complication. DISCHARGE MEDICATIONS: Please reference the med rec printed on 04/06/2017. FOLLOWUP APPOINTMENTS: Include with Dr. Mackey, outpatient, for her 1st postoperative followup, as wel l as with her primary care provider, Dr. Saxena. I spent greater than 30 minutes in the planning and coordination of this discharge. /[id number]/MODL
== END 2017-04-06 11:15 | disposition home or self-care (01) ==
LOC: F3E 04-05 00:58
PROVIDERS: ADMIT Family Medicine; ATTEND Hospitalist
PROC: 0FT44ZZ Resection of Gallbladder, Percutaneous Endoscopic Approach (ICD-10-PCS; principal; 2017-04-04)
DX: K80.10 Calculus of gallbladder with chronic cholecystitis without obstruction (principal); E80.6 Other disorders of bilirubin metabolism; R74.0 Nonspecific elevation of levels of transaminase and lactic acid dehydrogenase [LDH]; D72.829 Elevated white blood cell count, unspecified; E86.9 Volume depletion, unspecified; F41.9 Anxiety disorder, unspecified; F32.9 Major depressive disorder, single episode, unspecified
CPT/HCPCS: 47562; 74181; 76001; 93005; 96361; 96374; 96375; 99285; G0378; J0690; J1100; J1170; J1650; J1885; J2250; J2270; J2405; J2550; J2704; J3010; Q9967